=== PATIENT | female | born 1980 | race Caucasian/White ===

== ENCOUNTER → 2018-03-28 13:29 | Outpatient (CLI) | payer OTHER, SELFPAY ==
[2018-03-28 08:43] VITALS: BMI 27.1
[2018-04-03 11:12] LABS: HPV APTIMA, High Risk Negative (Negative)
== END ==
PROVIDERS: Referring Provider Nurse Practitioner Women's Health; Visit Provider Nurse Practitioner Women's Health
DX: Z12.4 Encounter for screening for malignant neoplasm of cervix (principal)
CPT/HCPCS: 87624; 88175; G0145